=== PATIENT | male | born 1990 | race Caucasian/White ===

== ENCOUNTER 2020-09-10 20:33 | Emergency (ER) | payer OTHER ==
[~2020-09-10] VITALS: Ht 172.7 cm; Wt 72.6 kg
[2020-09-10 20:57] VITALS: BP 128/86
--- NOTE | 2020-09-10 20:57 | NUR ---
ED Nurse Note: Pt walked into ED c/o dysuria and pelvic pain/ pressure since AM. Pt reports that he urinates in droplets. Pt denies alcohol, drug or medication use, pt denies unprotected intercourse, denies fever n/v/d. Pt is AAOx4, breathing even and unlabored. Vital signs stable.
[2020-09-10] MEDS ORDERED: Acetaminophen 500mg (ES) tab ORAL ONE (21:15)
--- NOTE | 2020-09-10 21:26 | Emergency Room Report ---
History of Present Illness General Chief Complaint: Male Urogenital Problems Source: Patient Present Illness HPI Patient is complaining about decreased urine output and dysuria. He is not sure if he is had some pus. This is about 7 hours worth. He is never had this problem before. The patient denies unprotected sex. He has been masturbating also used a vibrator rectally yesterday Elevated perineal pain. There is no rectal pain or prostate pain. The patient also takes lithium and Adderall. Allergies: Coded Allergies: No Known Allergies (Unverified , 09/10/20) COVID-19 Screening Contact w/high risk pt: No Experienced COVID-19 symptoms?: No COVID-19 Testing performed CONCR[employer]E [employer] MOLDER: No Patient History Past Medical History: other - Bipolar disorder Social History: Reports: drug use - THC Social History Narrative Not working Reviewed Nursing Documentation: PMH: Agreed; PSxH: Agreed Nursing Documentation-PMH Past Medical History: No Stated History Physical Exam Vital Signs Date Time Temp Pulse Resp B/P (MAP) Pulse Ox O2 Delivery O2 Flow Rate FiO2 09/10/20 20:52 98.4 97 16 128/86 (100) 98 Room Air Medical Decision Making Diagnostic Impression: Primary Impression: Dysuria Additional Impression: Dehydration ER Course Patient presents with decreased urine output and dysuria. Differential includes UTI, renal failure, dehydration amongst others. Bladder scanner will be obtained. Lab ordered. Consideration of giving Pyridium. Status: improved Disposition: HOME, SELF-CARE Condition: Improved Willy Carver MD Sep 10, 2020 21:26
--- NOTE | 2020-09-10 21:31 | NUR ---
ED Nurse Note: blood and urine sent to lab
--- NOTE | 2020-09-10 21:31 | NUR ---
ED Nurse Note: senior laboratory technician at bedside
[2020-09-10 21:46] LABS: APPEARANCE,URINE CLEAR; BILIRUBIN, URINE NEGATIVE (NEGATIVE); GLUCOSE, URINE (UA) NEGATIVE (NEGATIVE); KETONES,URINE 4+ (NEGATIVE); LEUKOCYTE ESTERASE ,URINE 1+ (NEGATIVE); NITRITE,URINE NEGATIVE (NEGATIVE); PH,URINE 5 (4.5-8.0); PROTEIN,URINE 2+ (NEGATIVE); UROBILINOGEN,URINE 1 MG/DL (0.0-1.0)
[2020-09-10 21:48] LABS: ANION GAP 8 mmol/L (5-15); BLOOD UREA NITROGEN 25 mg/dL (7-18); CALCIUM 8.8 MG/DL (8.5-10.1); CARBON DIOXIDE 27 MMOL/L (21-32); CHLORIDE 99 MMOL/L (98-107); CREATININE 1.2 MG/DL (0.55-1.30); SODIUM 134 MMOL/L (136-145)
[2020-09-10 21:49] LABS: COLOR,URINE YELLOW
--- NOTE | 2020-09-10 21:52 | Diagnostic Imaging Report ---
EXAM: XR Abdomen, 2 Views CLINICAL HISTORY: ABD PAIN TECHNIQUE: Frontal view of the abdomen/pelvis with upright view of the abdomen. COMPARISON: No relevant prior studies available. FINDINGS: Intraperitoneal space: No free air. Gastrointestinal tract: Unremarkable. No dilation. Bones/joints: Unremarkable. IMPRESSION: Nonobstructive bowel gas pattern.
[2020-09-10 21:58] LABS: ALANINE AMINOTRANSFERASE 19 U/L (12-78); ALBUMIN 4.3 G/DL (3.4-5.0); ALBUMIN/GLOBULIN RATIO 1.2 (1.0-2.7); ALKALINE PHOSPHATASE 62 U/L (46-116); ASPARTATE AMINO TRANSFERASE 21 U/L (15-37); BILIRUBIN,TOTAL 1.8 MG/DL (0.2-1.0); CREATINE KINASE 110 U/L (26-308)
[2020-09-10 21:59] LABS: BILIRUBIN,DIRECT 0.3 MG/DL (0.0-0.3)
--- NOTE | 2020-09-10 22:24 | NUR ---
ED Nurse Note: post void residual 19mL
[2020-09-10 22:27] LABS: BASOPHILS % (AUTO) 0.7 % (0.0-2.0); EOSINOPHILS % (AUTO) 0.3 % (0.0-3.0); HEMATOCRIT 43.5 % (42.0-52.0); HEMOGLOBIN 15.9 G/DL (14.2-18.0); MEAN CORPUSCULAR VOLUME 84 FL (80-99); MONOCYTES % (AUTO) 5.5 % (1.0-10.0); NEUTROPHILS % (AUTO) 73.4 % (45.0-75.0); PLATELET COUNT 268 K/UL (150-450); RED BLOOD COUNT 5.16 M/UL (4.70-6.10); WHITE BLOOD COUNT 8.9 K/UL (4.8-10.8)
--- NOTE | 2020-09-10 22:30 | NUR ---
ED Nurse Note: pt has voided x3 times, small amount of urine. EDMD aware.
[2020-09-10] MEDS ORDERED: PHENAZOPYRIDIN100 MG ORAL (22:44)
[2020-09-10] MEDS ORDERED: TYLENOL325 MG ORAL (22:45)
[2020-09-10] MEDS ORDERED: Phenazopyridine 200mg tab ORAL ONE ×2 (22:55→23:00)
[2020-09-10 23:00] VITALS: BP 118/81
--- NOTE | 2020-09-10 23:00 | NUR ---
ER DISCHARGE NOTE: Patient is cleared to be discharged per ERMD, pt is aox4, on room air, with stable vital signs. pt was given dc and prescription instructions, pt was able to verbalize understanding, pt id band and iv site removed without complications. pt is able to ambulate with steady gait. pt took all belongings.
[2020-09-10] MEDS ORDERED: LITHIUM CARBON150 MG ORAL (23:40)
[2020-09-10] MEDS ORDERED: ADDERAL20 MG ORAL (23:42)
== END 2020-09-10 23:00 | disposition home or self-care (01) ==
LOC: EMR 21:26
DX: R30.0 Dysuria (principal); E86.0 Dehydration; F12.90 Cannabis use, unspecified, uncomplicated
CPT/HCPCS: 36415; 74018; 80053; 80307; 81003; 82248; 82550; 83690; 85025; 99284